=== PATIENT | female | born 1970 | race Two or more races ===

== ENCOUNTER 2018-10-08 07:12 | Outpatient (CLI) | payer OTHER | END 2018-10-08 07:19 | disposition home or self-care (01) | LOC: SONOGRAMA 07:12 | DX: E04.1 Nontoxic single thyroid nodule (principal) ==

== ENCOUNTER 2022-05-17 10:02 | Emergency (ER) | payer OTHER ==
[~2022-05-17] VITALS: Ht 157.5 cm; Wt 102.1 kg
[2022-05-17] MEDS ORDERED: DILTIAZEM HCL60 MG PO (10:24)
[2022-05-17] MEDS ORDERED: CLONAZEPAM0.5 MG PO (10:24)
[2022-05-17] MEDS ORDERED: ROSUVASTATIN CAL5 MG PO (10:24)
[2022-05-17] MEDS ORDERED: ESCITALOPRAM OX10 MG PO (10:24)
[2022-05-17] MEDS ORDERED: LEVO-T25 MCG PO (10:24)
[2022-05-17] MEDS ORDERED: NABUMETONE500 MG PO (10:25)
[2022-05-17] MEDS ORDERED: LEXAPRO5 MG (10:25)
[2022-05-17] MEDS ORDERED: LORATADINE10 MG PO (10:25)
[2022-05-17] MEDS ORDERED: DAFLONEX-XL 11300 MG PO (10:25)
[2022-05-17] MEDS ORDERED: CELEBREX100 MG PO (14:46)
[2022-05-17] MEDS ORDERED: INTESTINEX680 M1 PO (14:46)
[2022-05-17] MEDS ORDERED: METRONIDAZOLE500 MG PO (14:46)
[2022-05-17] MEDS ORDERED: PEPCID AC20 MG PO (14:46)
[2022-05-17] MEDS ORDERED: LEVSIN/SL0.125 MG PO (14:46)
[2022-05-17] MEDS ORDERED: CIPRO500 MG PO (14:46)
[2022-05-17] MEDS ORDERED: KETO10TA2 PO (14:46)
== END 2022-05-17 16:13 ==
LOC: ER 10:02
DX: K57.92 Diverticulitis of intestine, part unspecified, without perforation or abscess without bleeding (principal); R10.32 Left lower quadrant pain